=== PATIENT | male | born 1960 | race Caucasian/White ===

== ENCOUNTER 2018-04-07 19:00 | Emergency (ER) | payer BC, SELFPAY ==
[~2018-04-07] VITALS: Ht 185.4 cm; Wt 102.1 kg
[2018-04-07] MEDS ORDERED: TERA5 PO (19:13)
[2018-04-07] MEDS ORDERED: ASPI325 PO (19:13)
[2018-04-07 19:29] LABS: BASOPHILS ABSOLUTE AUTO 0.04 K/mm3 (0.00-0.23); BASOPHILS PERCENT AUTO 0 % (0-2); EOSINOPHILS ABSOLUTE AUTO 0.31 K/mm3 (0.00-0.68); EOSINOPHILS PERCENT AUTO 3 % (0-6); Hemoglobin 16.1 g/dL (13.5-17.5); IMMATURE GRAN ABSOLUTE AUTO 0.04 K/mm3 (0.00-0.10); IMMATURE GRAN PERCENT AUTO 0 % (0-1); LYMPHOCYTES ABSOLUTE AUTO 2.48 K/mm3 (0.84-5.20); LYMPHOCYTES PERCENT AUTO 22 % (21-46); MONOCYTES ABSOLUTE AUTO 1.03 K/mm3 (0.16-1.47); MONOCYTES PERCENT AUTO 9 % (4-13); Mean Corpuscular HGB 33.2 pg (26.0-34.0); Mean Corpuscular Volume 95 fL (80-100); Mean Platelet Volume 9.5 fL (9.1-12.4); NEUTROPHILS ABSOLUTE AUTO 7.17 K/mm3 (1.96-9.15); NEUTROPHILS PERCENT AUTO 65 % (41-73); Platelet Count 202 K/mm3 (150-400); RDW Coefficient Variation 12.3 % (11.7-14.2); RDW Standard Deviation 43.2 fL (35.1-46.3); Red Blood Cell Count 4.85 M/mm3 (4.30-5.90); White Blood Cell Count 11.07 K/mm3 (4.00-11.30)
[2018-04-07 19:55] LABS: Alanine Aminotransfer (ALT/SGP 28 U/L (12-78); Albumin, Blood 4.1 g/dL (3.4-5.0); Alk Phos 56 U/L (50-136); Anion Gap 7 mmol/L (6-16); Aspartate Aminotrans (AST/SGOT 19 U/L (12-37); Bilirubin, Total 0.5 mg/dL (0.1-1.0); Blood Urea Nitrogen 20 mg/dL (8-24); Bun/Creatinine Ratio 20.2 (12.0-20.0); CO2, Blood 24 mmol/L (21-32); Calcium, Blood 8.8 mg/dL (8.5-10.1); Chloride, Blood 105 mmol/L (98-108); Creatinine, Blood 0.99 mg/dL (0.60-1.20); Globulin, Blood 4.2 g/dL (2.2-4.0); Glomerular Filtration Rate >60 (60-); Glucose, Blood 101 mg/dL (70-99); Potassium, Blood 3.9 mmol/L (3.5-5.5); Sodium, Blood 136 mmol/L (136-145); Total Protein, Blood 8.3 g/dL (6.4-8.2); Troponin I <0.015 ng/mL (0.000-0.040)
== END 2018-04-07 23:58 | disposition home or self-care (01) ==
LOC: ER 19:00
PROVIDERS: Emergency Medicine
DX: R07.9 Chest pain, unspecified (principal); Z88.5 Allergy status to narcotic agent; Z79.82 Long term (current) use of aspirin; Z79.899 Other long term (current) drug therapy; I48.91 Unspecified atrial fibrillation
CPT/HCPCS: 36415; 71046; 71260; 80053; 84484; 85025; 85379; 93005; 93010; 96361; 96374; 99285-25; J1885; J7030; Q9967

== ENCOUNTER 2019-03-10 05:08 | Emergency (ER) | payer OTHER ==
[~2019-03-10] VITALS: Ht 182.9 cm; Wt 97.5 kg
[~2019-03-10 05:08] MED LIST: ASPI325 PO; TERA5 PO
[2019-03-10 06:18] LABS: BASOPHILS ABSOLUTE AUTO 0.03 K/mm3 (0.00-0.23); BASOPHILS PERCENT AUTO 0 % (0-2); EOSINOPHILS ABSOLUTE AUTO 0.14 K/mm3 (0.00-0.68); EOSINOPHILS PERCENT AUTO 1 % (0-6); Hematocrit 46.4 % (37.0-53.0); Hemoglobin 15.7 g/dL (13.5-17.5); IMMATURE GRAN ABSOLUTE AUTO 0.05 K/mm3 (0.00-0.10); IMMATURE GRAN PERCENT AUTO 0 % (0-1); LYMPHOCYTES PERCENT AUTO 18 % (21-46); MONOCYTES ABSOLUTE AUTO 0.69 K/mm3 (0.16-1.47); MONOCYTES PERCENT AUTO 6 % (4-13); Mean Corpuscular HGB 32.2 pg (26.0-34.0); Mean Corpuscular HGB Conc 33.8 g/dL (31.5-36.5); Mean Corpuscular Volume 95 fL (80-100); NEUTROPHILS ABSOLUTE AUTO 8.75 K/mm3 (1.96-9.15); NEUTROPHILS PERCENT AUTO 74 % (41-73); Platelet Count 201 K/mm3 (150-400); RDW Coefficient Variation 12.6 % (11.7-14.2); Red Blood Cell Count 4.88 M/mm3 (4.30-5.90); White Blood Cell Count 11.76 K/mm3 (4.00-11.30)
[2019-03-10 06:36] LABS: Alanine Aminotransfer (ALT/SGP 36 U/L (12-78); Albumin, Blood 3.8 g/dL (3.4-5.0); Alk Phos 62 U/L (50-136); Anion Gap 6 mmol/L (6-16); Aspartate Aminotrans (AST/SGOT 18 U/L (12-37); Bilirubin, Total 0.2 mg/dL (0.1-1.0); Blood Urea Nitrogen 16 mg/dL (8-24); Bun/Creatinine Ratio 17.4 (12.0-20.0); CO2, Blood 27 mmol/L (21-32); Calcium, Blood 8.7 mg/dL (8.5-10.1); Chloride, Blood 106 mmol/L (98-108); Creatinine, Blood 0.92 mg/dL (0.60-1.20); Globulin, Blood 3.7 g/dL (2.2-4.0); Glomerular Filtration Rate >60 (60-); Glucose, Blood 114 mg/dL (70-99); Magnesium, Blood 2.2 mg/dL (1.6-2.4); Potassium, Blood 3.8 mmol/L (3.5-5.5); Sodium, Blood 139 mmol/L (136-145); Total Protein, Blood 7.5 g/dL (6.4-8.2); Troponin I <0.015 ng/mL (0.000-0.040)
[2019-03-10] MEDS ORDERED: HYDR1TAB94 PO (07:50)
[2019-03-10] MEDS ORDERED: ONDA4ODT SL (07:50)
== END 2019-03-10 08:02 | disposition home or self-care (01) ==
LOC: ER 05:08
PROVIDERS: Emergency Medicine
DX: K80.20 Calculus of gallbladder without cholecystitis without obstruction (principal); I48.91 Unspecified atrial fibrillation; Z88.5 Allergy status to narcotic agent
CPT/HCPCS: 36415; 76705; 80053; 83690; 83735; 84484; 85025; 93005; 93010; 96361; 96374; 96375; 99284-25; J1885; J2405; J7120

== ENCOUNTER 2019-10-02 01:37 | Inpatient (IN) | payer OTHER ==
[~2019-10-02] VITALS: Ht 182.9 cm; Wt 90.7 kg
[~2019-10-02 01:37] MED LIST changes: +HYDR1TAB94 PO; +ONDA4ODT SL
[2019-10-02 02:38] LABS: BASOPHILS ABSOLUTE AUTO 0.04 K/mm3 (0.00-0.23); BASOPHILS PERCENT AUTO 0 % (0-2); EOSINOPHILS ABSOLUTE AUTO 0.11 K/mm3 (0.00-0.68); EOSINOPHILS PERCENT AUTO 1 % (0-6); Hematocrit 48.1 % (37.0-53.0); Hemoglobin 16.3 g/dL (13.5-17.5); IMMATURE GRAN ABSOLUTE AUTO 0.05 K/mm3 (0.00-0.10); IMMATURE GRAN PERCENT AUTO 0 % (0-1); LYMPHOCYTES ABSOLUTE AUTO 1.76 K/mm3 (0.84-5.20); LYMPHOCYTES PERCENT AUTO 13 % (21-46); MONOCYTES ABSOLUTE AUTO 0.62 K/mm3 (0.16-1.47); MONOCYTES PERCENT AUTO 5 % (4-13); Mean Corpuscular HGB 32.3 pg (26.0-34.0); Mean Corpuscular HGB Conc 33.9 g/dL (31.5-36.5); Mean Corpuscular Volume 95 fL (80-100); Mean Platelet Volume 9.7 fL (9.1-12.4); NEUTROPHILS ABSOLUTE AUTO 10.63 K/mm3 (1.96-9.15); NEUTROPHILS PERCENT AUTO 81 % (41-73); Platelet Count 233 K/mm3 (150-400); RDW Coefficient Variation 12.8 % (11.7-14.2); RDW Standard Deviation 44.9 fL (35.1-46.3); Red Blood Cell Count 5.04 M/mm3 (4.30-5.90); White Blood Cell Count 13.21 K/mm3 (4.00-11.30)
[2019-10-02 02:56] LABS: Alanine Aminotransfer (ALT/SGP 31 U/L (12-78); Albumin, Blood 4.3 g/dL (3.4-5.0); Alk Phos 62 U/L (50-136); Anion Gap 5 mmol/L (6-16); Aspartate Aminotrans (AST/SGOT 15 U/L (12-37); Bilirubin, Total 0.5 mg/dL (0.1-1.0); Blood Urea Nitrogen 15 mg/dL (8-24); Bun/Creatinine Ratio 14.3 (12.0-20.0); CO2, Blood 30 mmol/L (21-32); Calcium, Blood 9.6 mg/dL (8.5-10.1); Chloride, Blood 103 mmol/L (98-108); Creatinine, Blood 1.05 mg/dL (0.60-1.20); Globulin, Blood 4.5 g/dL (2.2-4.0); Glomerular Filtration Rate >60 (60-); Glucose, Blood 147 mg/dL (70-99); Potassium, Blood 3.4 mmol/L (3.5-5.5); Sodium, Blood 138 mmol/L (136-145); Total Protein, Blood 8.8 g/dL (6.4-8.2)
[2019-10-02 03:05] LABS: Source, Urine Clean Catch
[2019-10-02 03:09] LABS: Appearance, Urine Cloudy (Clear); Bilirubin, Urine Neg (Neg); Blood, Urine Neg (Neg); Color, Urine Amber (P-Yellow); Glucose Qualitative, Urine Neg (Neg); Ketones, Urine 3+ (Neg); Leukocyte Esterase, Urine Neg (Neg); Nitrite, Urine Neg (Neg); Protein, Urine Neg (Neg); Specific Gravity, Urine 1.015 (1.003-1.022); Urobilinogen, Urine NORM (Normal)
[2019-10-02 03:17] LABS: Amorphous Heavy (0-Heavy); Bacteria Rare /hpf; Granular Casts 0-2 /lpf (0); Red Blood Cells, Urine 0-2 /hpf (0-2); Squamous Epithelial Cells Not Seen /hpf (Few); White Blood Cells, Urine 0-2 /hpf (0-5)
--- NOTE | 2019-10-02 11:00 | NUR ---
SURGERY: PT TO DAY SURGERY. COVID TEST SENT. SURGICAL PKT COMPLETE. PT UP TO VOID. ABX SENT WITH PATIENT CHART. WILL CONT TO MONITOR WHEN RETURNS TO ROOM POST OP.
--- NOTE | 2019-10-02 16:42 | NUR ---
POST OP: PT RETURNED TO ROOM POST OP. DROWSY. VSS. PT ASSISTED UP TO BATHROOM TO VOID. GAUZE X4 TO ABDOMEN. SHERRON WITH MOD AMT SS FLUID. PT DENIES PAIN OR NAUSEA. SON AT BEDSIDE. WATER GIVEN. WILL CONT TO MONITOR.
--- NOTE | 2019-10-02 19:47 | NUR ---
PT HAS BEEN STABLE POST OP. DENIES PAIN. AMBULATES TO BATHROOM WITH MIN ASSIST. VOIDING WELL. ORALIA CLEARS WITHOUT NAUSEA. GAUZE TO ABD CDI. SHERRON WITH 100CC OUTPUT. CONT IV FLUIDS AND ABX ORDERED. PAS TO BLE. PT CALLS APPROPRIATELY NEEDED.
[2019-10-03 04:29] LABS: BASOPHILS ABSOLUTE AUTO 0.02 K/mm3 (0.00-0.23); BASOPHILS PERCENT AUTO 0 % (0-2); EOSINOPHILS ABSOLUTE AUTO 0.01 K/mm3 (0.00-0.68); EOSINOPHILS PERCENT AUTO 0 % (0-6); Hematocrit 39.3 % (37.0-53.0); Hemoglobin 13.6 g/dL (13.5-17.5); IMMATURE GRAN ABSOLUTE AUTO 0.04 K/mm3 (0.00-0.10); IMMATURE GRAN PERCENT AUTO 0 % (0-1); LYMPHOCYTES ABSOLUTE AUTO 1.88 K/mm3 (0.84-5.20); LYMPHOCYTES PERCENT AUTO 15 % (21-46); MONOCYTES PERCENT AUTO 7 % (4-13); Mean Corpuscular HGB 33.3 pg (26.0-34.0); Mean Corpuscular HGB Conc 34.6 g/dL (31.5-36.5); Mean Corpuscular Volume 96 fL (80-100); Mean Platelet Volume 9.9 fL (9.1-12.4); NEUTROPHILS ABSOLUTE AUTO 10.05 K/mm3 (1.96-9.15); NEUTROPHILS PERCENT AUTO 78 % (41-73); Platelet Count 178 K/mm3 (150-400); RDW Coefficient Variation 13.1 % (11.7-14.2); RDW Standard Deviation 46.5 fL (35.1-46.3); Red Blood Cell Count 4.08 M/mm3 (4.30-5.90)
[2019-10-03 05:02] LABS: Alanine Aminotransfer (ALT/SGP 90 U/L (12-78); Albumin, Blood 2.9 g/dL (3.4-5.0); Albumin/Globulin Ratio 0.9 (0.8-1.8); Alk Phos 42 U/L (50-136); Anion Gap 4 mmol/L (6-16); Aspartate Aminotrans (AST/SGOT 46 U/L (12-37); Bilirubin, Total 0.6 mg/dL (0.1-1.0); Blood Urea Nitrogen 9 mg/dL (8-24); Bun/Creatinine Ratio 10.6 (12.0-20.0); CO2, Blood 27 mmol/L (21-32); Calcium, Blood 8.1 mg/dL (8.5-10.1); Chloride, Blood 109 mmol/L (98-108); Creatinine, Blood 0.85 mg/dL (0.60-1.20); Globulin, Blood 3.4 g/dL (2.2-4.0); Glomerular Filtration Rate >60 (60-); Glucose, Blood 111 mg/dL (70-99); Potassium, Blood 3.8 mmol/L (3.5-5.5); Sodium, Blood 140 mmol/L (136-145)
[2019-10-03 05:11] LABS: Total Protein, Blood 6.3 g/dL (6.4-8.2)
--- NOTE | 2019-10-03 06:33 | NUR ---
SHIFT SUMMARY LYING IN SMEI FOWLERS WITH EYES CLOSED. HAS BEEN UP AND DOWN THROUGHOT SHIFT USING BATHROOM. ABLE TO AMBULATE TO COMMODE WITHOUT ASSITANCE. CONTINENT OF BOWEL AND BLADDER. HAS BEEN MEDICATED FOR PAIN X3 THIS SHIFT, TOLERATING PO PAIN MANAGEMENT WELL. SHERRON DRAIN PRODUCING SS FLUID TO COMPRESSED BULB. LAP SITES X4 C/D/I. DENIES FURTHER NEEDS OR WANTS AT THIS TIME. SAFETY MEASURES IN PLACE. WILL CONTINUE TO MONITOR AND GIVE HAND OFF TO ONCOMING SHIFT USING SBAR DURING BEDSIDE REPORT.
--- NOTE | 2019-10-03 16:41 | NUR ---
10/03/19 1641 Colleen Hines VERIFICATIONS: EDIT CHART.
--- NOTE | 2019-10-03 18:39 | NUR ---
SHIFT SUMMARY: VSS, NO ACUTE CHANGES, PT TOLERATED PO INTAKE WITH INCREASED DIET, NO N/V. PT REPORTS PAIN CONTROLLED PER MAR. PT WITH URINE OUTPUT >350 HIS SHIFT. PT RECEIVED SCHEDULED ABX THIS SHIFT. PT'S SON VISITED X 1 THIS AFTERNOON. PT UP IN ROOM, ENCOURAGED TO AMBUATE. LAP SITES X 4 REMAINED C/D/I. SHERRON DRAING WITH CLOTS IN LINE, MILKED LINE X 2 THIS SHIFT.SHERRON OUTPUT APPROX 30 ML SEROSANGUINOUS FLUID WITH CLOTS
[2019-10-04 04:17] LABS: BASOPHILS ABSOLUTE AUTO 0.03 K/mm3 (0.00-0.23); BASOPHILS PERCENT AUTO 0 % (0-2); EOSINOPHILS PERCENT AUTO 1 % (0-6); Hematocrit 40.6 % (37.0-53.0); Hemoglobin 13.5 g/dL (13.5-17.5); IMMATURE GRAN ABSOLUTE AUTO 0.03 K/mm3 (0.00-0.10); IMMATURE GRAN PERCENT AUTO 0 % (0-1); LYMPHOCYTES ABSOLUTE AUTO 2.48 K/mm3 (0.84-5.20); LYMPHOCYTES PERCENT AUTO 23 % (21-46); MONOCYTES ABSOLUTE AUTO 0.86 K/mm3 (0.16-1.47); MONOCYTES PERCENT AUTO 8 % (4-13); Mean Corpuscular HGB 32.8 pg (26.0-34.0); Mean Corpuscular HGB Conc 33.3 g/dL (31.5-36.5); Mean Corpuscular Volume 99 fL (80-100); NEUTROPHILS ABSOLUTE AUTO 7.45 K/mm3 (1.96-9.15); NEUTROPHILS PERCENT AUTO 68 % (41-73); Platelet Count 183 K/mm3 (150-400); RDW Coefficient Variation 13.2 % (11.7-14.2); RDW Standard Deviation 47.6 fL (35.1-46.3); Red Blood Cell Count 4.12 M/mm3 (4.30-5.90); White Blood Cell Count 10.95 K/mm3 (4.00-11.30)
[2019-10-04 04:38] LABS: Alanine Aminotransfer (ALT/SGP 64 U/L (12-78); Albumin, Blood 2.9 g/dL (3.4-5.0); Albumin/Globulin Ratio 0.8 (0.8-1.8); Alk Phos 44 U/L (50-136); Anion Gap 4 mmol/L (6-16); Aspartate Aminotrans (AST/SGOT 22 U/L (12-37); Bilirubin, Total 0.5 mg/dL (0.1-1.0); Blood Urea Nitrogen 9 mg/dL (8-24); Bun/Creatinine Ratio 9.9 (12.0-20.0); CO2, Blood 29 mmol/L (21-32); Calcium, Blood 7.9 mg/dL (8.5-10.1); Chloride, Blood 107 mmol/L (98-108); Creatinine, Blood 0.91 mg/dL (0.60-1.20); Globulin, Blood 3.5 g/dL (2.2-4.0); Glomerular Filtration Rate >60 (60-); Glucose, Blood 91 mg/dL (70-99); Potassium, Blood 3.6 mmol/L (3.5-5.5); Sodium, Blood 140 mmol/L (136-145); Total Protein, Blood 6.4 g/dL (6.4-8.2)
--- NOTE | 2019-10-04 06:21 | NUR ---
SHIFT SUMMARY LYING IN SEMI FOWLERS WITH EYES CLOSED. HAS RESTED WELL THIS SHIFT. ABLE TO AMBULATE TO COMMODE WITHOUT ASSITANCE. CONTINENT OF BOWEL AND BLADDER. HAS BEEN MEDICATED FOR PAIN X2 THIS SHIFT, TOLERATING WELL. SHERRON DRAIN PRODUCING SS FLUID TO COMPRESSED BULB. LAP SITES X4 C/D/I. DENIES FURTHER NEEDS OR WANTS AT THIS TIME. SAFETY MEASURES IN PLACE. WILL CONTINUE TO MONITOR AND GIVE HAND OFF TO ONCOMING SHIFT USING SBAR DURING BEDSIDE REPORT.
--- NOTE | 2019-10-04 08:00 | NUR ---
PT REQ PAIN MEDS 1 TAB PO NORCO GIVEN PT STATED THAT IT IS NO LONGER RUQ MORE LOWER ABD R/T SHERRON AND SURGICAL LAP SITES PT HAS SERO/SANG DRAINAGE TO SHERRON EMPTIED 40 ML
--- NOTE | 2019-10-04 09:10 | NUR ---
DR NIELSON BY TO SEE PT REMOVED SHERRON DRAIN SUPPLIES GIVEN PER DR PASTRANA PLAN FOR DISCHARGE
--- NOTE | 2019-10-04 10:30 | NUR ---
WC ESCORT TO CAR NO ACUTE CHANGES RX GIVEN
== END 2019-10-04 10:31 | disposition home or self-care (01) | DRG 419 ==
LOC: ER 01:37 → SURS 05:05 → ERHOLD 05:05 → SURS 08:19
PROVIDERS: Emergency Medicine; Surgery; ADMIT Surgery
PROC: BF13YZZ Fluoroscopy of Gallbladder and Bile Ducts using Other Contrast (ICD-10-PCS; 2019-10-02)
PROC: 0FT44ZZ Resection of Gallbladder, Percutaneous Endoscopic Approach (ICD-10-PCS; principal; 2019-10-02 10:45)
DX: K81.0 Acute cholecystitis (principal); K82.A1 Gangrene of gallbladder in cholecystitis; Z79.82 Long term (current) use of aspirin
CPT/HCPCS: 36415; 74177; 74300; 76700; 80053; 81001; 83605; 83690; 85025; 88304; 93005; 93010; 96374-59; 96375-59; 99285-25; A9270-GY; C1894; J1100; J1170; J1650; J1885; J2250; J2270; J2405; J2543; J2704; J3010; J7030; J7120; Q9967; U0002

== ENCOUNTER 2020-10-30 14:40 | Inpatient (IN) | payer OTHER ==
[~2020-10-30] VITALS: Ht 185.4 cm; Wt 92.6 kg
[2020-10-30 15:56] LABS: BASOPHILS ABSOLUTE AUTO 0.01 K/mm3 (0.00-0.23); BASOPHILS PERCENT AUTO 0 % (0-2); EOSINOPHILS PERCENT AUTO 0 % (0-6); Hematocrit 40.3 % (37.0-53.0); Hemoglobin 14.2 g/dL (13.5-17.5); IMMATURE GRAN ABSOLUTE AUTO 0.05 K/mm3 (0.00-0.10); IMMATURE GRAN PERCENT AUTO 0 % (0-1); LYMPHOCYTES ABSOLUTE AUTO 0.78 K/mm3 (0.84-5.20); LYMPHOCYTES PERCENT AUTO 5 % (21-46); MONOCYTES ABSOLUTE AUTO 0.71 K/mm3 (0.16-1.47); MONOCYTES PERCENT AUTO 5 % (4-13); Mean Corpuscular HGB 32.9 pg (26.0-34.0); Mean Corpuscular HGB Conc 35.2 g/dL (31.5-36.5); Mean Corpuscular Volume 93 fL (80-100); Mean Platelet Volume 9.6 fL (9.1-12.4); NEUTROPHILS ABSOLUTE AUTO 14.16 K/mm3 (1.96-9.15); NEUTROPHILS PERCENT AUTO 90 % (41-73); Platelet Count 245 K/mm3 (150-400); RDW Coefficient Variation 12.9 % (11.7-14.2); RDW Standard Deviation 44.6 fL (35.1-46.3); Red Blood Cell Count 4.32 M/mm3 (4.30-5.90); White Blood Cell Count 15.71 K/mm3 (4.00-11.30)
[2020-10-30 16:11] LABS: SARS-Cov-2 (COVID-19) PCR, MMC NEGATIVE (NEGATIVE)
[2020-10-30 16:17] LABS: Alanine Aminotransfer (ALT/SGP 20 U/L (12-78); Albumin, Blood 3.1 g/dL (3.4-5.0); Albumin/Globulin Ratio 0.8 (0.8-1.8); Alk Phos 51 U/L (50-136); Anion Gap 8 mmol/L (6-16); Aspartate Aminotrans (AST/SGOT 11 U/L (12-37); Bilirubin, Total 0.5 mg/dL (0.1-1.0); Blood Urea Nitrogen 17 mg/dL (8-24); Bun/Creatinine Ratio 18.8 (12.0-20.0); CO2, Blood 24 mmol/L (21-32); Calcium, Blood 8.3 mg/dL (8.5-10.1); Chloride, Blood 103 mmol/L (98-108); Creatinine, Blood 0.91 mg/dL (0.60-1.20); Glomerular Filtration Rate >60 (60-); Glucose, Blood 122 mg/dL (70-99); Potassium, Blood 3.4 mmol/L (3.5-5.5); Sodium, Blood 135 mmol/L (136-145); Total Protein, Blood 7.1 g/dL (6.4-8.2)
[2020-10-30] MEDS ORDERED: ELIQUIS5 M2 PO (16:51)
--- NOTE | 2020-10-30 18:24 | NUR ---
10/30/201823 Kelvin Smith PT GIVEN ZOSYN IN ED AT 1630
[2020-10-31 04:45] LABS: BASOPHILS ABSOLUTE AUTO 0.02 K/mm3 (0.00-0.23); BASOPHILS PERCENT AUTO 0 % (0-2); EOSINOPHILS PERCENT AUTO 0 % (0-6); Hematocrit 42.3 % (37.0-53.0); Hemoglobin 14.4 g/dL (13.5-17.5); IMMATURE GRAN ABSOLUTE AUTO 0.04 K/mm3 (0.00-0.10); IMMATURE GRAN PERCENT AUTO 0 % (0-1); LYMPHOCYTES ABSOLUTE AUTO 0.95 K/mm3 (0.84-5.20); LYMPHOCYTES PERCENT AUTO 7 % (21-46); MONOCYTES ABSOLUTE AUTO 0.41 K/mm3 (0.16-1.47); MONOCYTES PERCENT AUTO 3 % (4-13); Mean Corpuscular Volume 97 fL (80-100); Mean Platelet Volume 9.6 fL (9.1-12.4); NEUTROPHILS ABSOLUTE AUTO 11.46 K/mm3 (1.96-9.15); NEUTROPHILS PERCENT AUTO 89 % (41-73); Platelet Count 201 K/mm3 (150-400); RDW Coefficient Variation 13.2 % (11.7-14.2); RDW Standard Deviation 47.4 fL (35.1-46.3); Red Blood Cell Count 4.36 M/mm3 (4.30-5.90); White Blood Cell Count 12.88 K/mm3 (4.00-11.30)
[2020-10-31 05:15] LABS: Alanine Aminotransfer (ALT/SGP 22 U/L (12-78); Albumin, Blood 2.7 g/dL (3.4-5.0); Albumin/Globulin Ratio 0.7 (0.8-1.8); Alk Phos 47 U/L (50-136); Anion Gap 6 mmol/L (6-16); Aspartate Aminotrans (AST/SGOT 12 U/L (12-37); Bilirubin, Total 0.7 mg/dL (0.1-1.0); Blood Urea Nitrogen 10 mg/dL (8-24); Bun/Creatinine Ratio 12.6 (12.0-20.0); CO2, Blood 26 mmol/L (21-32); Calcium, Blood 7.3 mg/dL (8.5-10.1); Chloride, Blood 107 mmol/L (98-108); Globulin, Blood 4.1 g/dL (2.2-4.0); Glomerular Filtration Rate >60 (60-); Glucose, Blood 131 mg/dL (70-99); Magnesium, Blood 2.3 mg/dL (1.6-2.4); Potassium, Blood 3.7 mmol/L (3.5-5.5); Sodium, Blood 139 mmol/L (136-145); Total Protein, Blood 6.8 g/dL (6.4-8.2)
--- NOTE | 2020-10-31 07:16 | NUR ---
SHIFT SUMMARY POD1 SIG COLECTOMY c RLQ OSTOMY PLACEMENT, A/O X4, VSS, TOLERATING CLEAR DIET, C/O HIGH PAIN AT START OF SHIFT, OBTAINED NEW MED FOR PAIN IN WHICH PT REPORTS PAIN SLOWLY COMING DOWN (SEE EMAR), PT NOW REPORTING PAIN MINIMAL WHEN AT REST BUT SPIKING c MOVEMENT. SMALL/MOD DRAINAGE IN JAC, NO OUTPUT IN OSTOMY YET, PINK STOMA VISIBLE. NO ACUTE EVENTS THIS SHIFT. CALL LIGHT IN REACH, REPORT GIVEN TO DAY RN.
--- NOTE | 2020-10-31 18:40 | NUR ---
SHIFT SUMMARY PT A&OX4, VSS/RA, TELE SR, POD1 SIGM COLECTOMY WITH OSTOMY, JAC MIDLINE DRY/INTACT, M[place] OCA PATENT & DRAINING YELLOW URINE, OFF FLOOR. ORALIA CL DIET FOR DINNER. PAIN MANAGED WITH 1 MG DILAUDID Q2P. 2 IVS R & L AC'S, SL EXCEPT FOR ABX SCHEDULED. STAND AND PIVOT UP TO CHAIR THIS AFTERNOON. WILL REPORT TO ONCOMING NOC RN.
--- NOTE | 2020-11-01 04:07 | NUR ---
SHIFT SUMMARY NO ACUTE CHANGES THIS SHIFT. PT RECEIVING IV DILAUDID FOR PAIN Q2-3 HOURS. REPORTS MILD HEART BURN/REFLUX--TUMS EFFECTIVE. JAC DRESSING TO ABD REMAINS UNCHANGED. STILL NO OUTPUT PRESENT IN COLOSTOMY BAG. M[place]CA PATENT. ENCOURAGING CLEAR LIQ PO INTAKE TOLERATED. PT USES CALL LIGHT APPROPRIATELY.
[2020-11-01 05:05] LABS: BASOPHILS ABSOLUTE AUTO 0.02 K/mm3 (0.00-0.23); BASOPHILS PERCENT AUTO 0 % (0-2); EOSINOPHILS ABSOLUTE AUTO 0.07 K/mm3 (0.00-0.68); EOSINOPHILS PERCENT AUTO 1 % (0-6); Hematocrit 40.5 % (37.0-53.0); Hemoglobin 13.7 g/dL (13.5-17.5); IMMATURE GRAN ABSOLUTE AUTO 0.03 K/mm3 (0.00-0.10); IMMATURE GRAN PERCENT AUTO 0 % (0-1); LYMPHOCYTES ABSOLUTE AUTO 1.17 K/mm3 (0.84-5.20); LYMPHOCYTES PERCENT AUTO 10 % (21-46); MONOCYTES ABSOLUTE AUTO 0.79 K/mm3 (0.16-1.47); MONOCYTES PERCENT AUTO 6 % (4-13); Mean Corpuscular HGB 32.5 pg (26.0-34.0); Mean Corpuscular HGB Conc 33.8 g/dL (31.5-36.5); Mean Corpuscular Volume 96 fL (80-100); Mean Platelet Volume 9.5 fL (9.1-12.4); NEUTROPHILS ABSOLUTE AUTO 10.23 K/mm3 (1.96-9.15); NEUTROPHILS PERCENT AUTO 83 % (41-73); Platelet Count 211 K/mm3 (150-400); RDW Coefficient Variation 13.2 % (11.7-14.2); Red Blood Cell Count 4.22 M/mm3 (4.30-5.90); White Blood Cell Count 12.31 K/mm3 (4.00-11.30)
[2020-11-01 05:37] LABS: Alanine Aminotransfer (ALT/SGP 19 U/L (12-78); Albumin, Blood 2.6 g/dL (3.4-5.0); Albumin/Globulin Ratio 0.6 (0.8-1.8); Alk Phos 50 U/L (50-136); Anion Gap 6 mmol/L (6-16); Aspartate Aminotrans (AST/SGOT 12 U/L (12-37); Bilirubin, Total 0.6 mg/dL (0.1-1.0); Blood Urea Nitrogen 14 mg/dL (8-24); Bun/Creatinine Ratio 15.9 (12.0-20.0); CO2, Blood 29 mmol/L (21-32); Calcium, Blood 7.8 mg/dL (8.5-10.1); Chloride, Blood 103 mmol/L (98-108); Creatinine, Blood 0.88 mg/dL (0.60-1.20); Globulin, Blood 4.3 g/dL (2.2-4.0); Glomerular Filtration Rate >60 (60-); Glucose, Blood 104 mg/dL (70-99); Potassium, Blood 3.6 mmol/L (3.5-5.5); Sodium, Blood 138 mmol/L (136-145); Total Protein, Blood 6.9 g/dL (6.4-8.2)
--- NOTE | 2020-11-01 18:17 | NUR ---
SHIFT SUMMARY PT A&OX4, VSS/RA, TELE SB 56. POD2 SIG COLECTOMY WITH OSTOMY, PASSING FLATUS, SMALL AMT OF LIQUID. PAIN TREATED WITH IV DILAUDID PRN. ORALIA PO CL DIET, ADV TO FULL LIQ FOR DINNER. MONT[place] OCA REMOVED AT 1700, AWAITING VOID. AMBULATED WITH FWW/SBA TO HALLWAY, UP TO CHAIR T/O SHIFT. WILL REPORT TO ONCOMING NOC RN.
--- NOTE | 2020-11-02 04:42 | NUR ---
SHIFT SUMMARY PT DID WELL T/O NIGHT. NO ACUTE CHANGES. 1 MG IV DILAUDID FOR PAIN PRN. NO CHANGES TO JAC DRESSING. OSTOMY CONTINUES TO PRODUCE GAS AND THERE IS SCANT SS DRAINAGE PRESENT IN BAG. PT BURPING OSTOMY INDEPENDENTLY. ORALIA FULL LIQ DIET. COMPLAINS OF LESS INDIGESTION TONIGHT THAN PREVIOUS NIGHT. IVF INFUSING PER ORDERS. USING URINAL TO VOID. USES CALL LIGHT APPROPRIATELY.
--- NOTE | 2020-11-02 09:46 | NUR ---
REPORT GIVEN TO NANY, SURGERY CENTER RN AT THIS TIME. PT TRANSFERED TO ROOM 405 VIA WHEELCHAIR WITH MALCOLM DUTTON AND LUIS ANGEL. PT LEFT UNIT WITH BELONGINGS.
--- NOTE | 2020-11-02 10:24 | NUR ---
LR D/C BEFORE ASSUMING CARE
--- NOTE | 2020-11-02 10:30 | NUR ---
ADDENDUM TO SHIFT ASSESSMENT- SKIN INTEGRITY: DRESSING ON ABDOMEN WITH FUNCTIONING WOUND VAC, OSTOMY LUQ NO SIGNS OF INFECTION, WARMTH OR DRAINAGE. OSTOMY SEAL APPROPRIATELY ATTACHED TO SKIN, CLEAN AND INTACT.
--- NOTE | 2020-11-02 15:05 | NUR ---
PATIENT RESTING IN BED SLEEPING WITH NO SIGNS OF DISTRESS NOTED. RESPIRATIONS EVEN AND UNLABORED. CALL LIGHT IN REACH.
--- NOTE | 2020-11-03 03:50 | NUR ---
PATIENT AWAKE, STATES PAIN IS STILL 6/10, RN DISCUSSED WITH PATIENT THAT HE COULD TAKE A SECOND PAIN PILL BUT THAT HIS 4HRS DOSAGE WOULD START OVER. PATIENT STATED THAT HE DOES NOT WANT ANOTHER PAIN PILL, PER PATIENT "IT WOULD REALLY MESS ME UP". INFORMED PATIENT TO LET RN KNOW IF HE CHANGES HIS MIND.
--- NOTE | 2020-11-03 11:10 | NUR ---
OSTOMY TEACHING AND DEMO DONE WITH THE PATIENT. HE WAS VERY EMOTIONAL PRIOR TO THE TEACHING, BY THE TIME WE DID THE ACTUAL TEACHING AND CHANGING OF THE BAG HE WAS INTERESTED AND ASKED QUESTIONS, QUESTIONS WERE ANSWERED, PT ALSO HELPED. PT FEELS CONFIDENT THAT HE WILL BE ABLE TO DO THIS AT HOME. 2 1/2 INCH BAG WAS USED.
--- NOTE | 2020-11-03 12:15 | NUR ---
PT RESTING/SLEEPING POST LUNCH
--- NOTE | 2020-11-03 12:52 | NUR ---
PT ALERT AND ORIENTED. SITTING IN BED, LOOKING AT TABLET. DENIES PAIN AT THIS TIME. PLEASANT AND QUIET.
--- NOTE | 2020-11-03 14:53 | NUR ---
DR PETIT AGREEABLE W/DR GUTHRIE'S PLAN TO DC PT.
--- NOTE | 2020-11-03 15:04 | NUR ---
PT TO BE DISCHARGED THIS AFTERNOON. DR. GUTHRIE WROTE 2 RX FOR PT. NORCO 5/325MG AND COLOSTOMY SUPPLIES. SON CAME TO FACILITY TO DEMOLITION EXPERT HIS DAD AT 3PM. BOTH RX GIVEN TO SON- OKAYED BY PATIENT. SON TO TAKE RX FOR NORCO TO [facility] WHILE WE ARE WAITING TO DISCHARGE HIS DAD. TOMORROW WILL TAKE RX FOR COLOSTMY SUPPLIES TO [facility]. IN THE MEAN TIME, COST COORDINATOR IS GATHERING SUPPLIES FOR COLOSTOMY KIT TO USE UNTIL ABLE TO FILL RX FOR SUPPLIES.
[2020-11-03] MEDS ORDERED: HYDR1TAB94 PO (15:05)
--- NOTE | 2020-11-03 15:12 | NUR ---
SHOWED DR. GUTHRIE PAPERWORK THAT I PULLED FROM [employer] ON COLOSTOMY CARE. STATES THAT IS PERFECT. INFORMATION GIVEN TO PT. PT APPRECATIVE.
--- NOTE | 2020-11-03 15:51 | NUR ---
0462 DISCHARGE INSTRUCTIONS REVIEWED WITH PT. REVIEWED COLOSTOMY SUPPLIES PROVIDED BY [facility]. ANSWERED ALL QUESTIONS. PT DECLINED INCENTIVE SPIROMETRY. STATES HE CAN DEEP BREATH. PT EXCITED TO BE GOING HOME. PT TO CONTACT DR. BARAKAT TOMORROW TO FIND OUT WHEN FOLLOW-UP APPT WILL BE THIS WEEK. SON HAS RX FOR DUR MEDICAL-OSTOMY SUPPLIES. PT HAS VOICED COMPLETE UNDERSTANDING. PT DISHCHARGED TO CAR VIA W/C.
== END 2020-11-03 16:04 | disposition home or self-care (01) | DRG 331 ==
LOC: ER 14:40 → SURS 16:56 → PCU 16:56 → SURS 20:51 → ORSCIP 11-02 10:13
PROVIDERS: Hospitalist; Physician Assistant; Surgery; ADMIT Hospitalist
PROC: 0DTN0ZZ Resection of Sigmoid Colon, Open Approach (ICD-10-PCS; principal; 2020-10-30 17:00)
PROC: 0D1M0Z4 Bypass Descending Colon to Cutaneous, Open Approach (ICD-10-PCS; 2020-10-30 17:00)
DX: K57.20 Diverticulitis of large intestine with perforation and abscess without bleeding (principal); Z20.822 Contact with and (suspected) exposure to COVID-19; I48.0 Paroxysmal atrial fibrillation; F41.9 Anxiety disorder, unspecified; F32.9 Major depressive disorder, single episode, unspecified; Z88.5 Allergy status to narcotic agent; Z98.890 Other specified postprocedural states; Z79.01 Long term (current) use of anticoagulants; Z79.899 Other long term (current) drug therapy; Z79.82 Long term (current) use of aspirin; Z90.49 Acquired absence of other specified parts of digestive tract
CPT/HCPCS: 36415; 74177; 80053; 83690; 83735; 84100; 85025; 88307; 93005; 93010; 96365; 96375; 97161; 99285-25; A9270; J1100; J1170; J2250; J2405; J2543; J2704; J3010; J7030; J7050; J7120; Q9967; U0004